=== PATIENT | male | born 1980 | race Caucasian/White ===

== ENCOUNTER 2020-11-18 21:25 | Emergency (ER) | payer SELFPAY ==
[2020-11-18] MEDS ORDERED: Sodium Chloride 0.9% 10 ML Syringe FLUSH PRN (21:27)
[2020-11-18] MEDS ORDERED: fentaNYL 100 MCG/2 ML SDV IVPUSH ONE ×2 (21:27→22:58)
[2020-11-18] MEDS ORDERED: Ketamine 500 MG/5 ML MDV IV ONE ×2 (21:27→22:58)
[2020-11-18] MEDS ORDERED: fentaNYL 100 MCG/2 ML SDV ONE (21:37)
[2020-11-18] MEDS ORDERED: Ketamine 500 MG/5 ML MDV ONE (21:37)
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
[2020-11-18] MEDS ORDERED: HYDROmorphone 1 MG/ML Syringe IVPUSH ONE (22:11)
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
== END 2020-11-18 23:51 ==
LOC: JP.ED 21:25
DX: S82.402A Unspecified fracture of shaft of left fibula, initial encounter for closed fracture (principal); S82.202A Unspecified fracture of shaft of left tibia, initial encounter for closed fracture; V86.56XA Driver of dirt bike or motor/cross bike injured in nontraffic accident, initial encounter
CPT/HCPCS: 29505; 73590; 96374; 96375; 96376; 99284; J1170; J3010